=== PATIENT | female | born 1995 | race Caucasian/White ===

== ENCOUNTER 2016-07-31 00:01 | Emergency (ER) | payer MEDICAID ==
[~2016-07-31] VITALS: Ht 152.4 cm; Wt 78.2 kg
[~2016-07-31 00:01] MED LIST: NPR500T PO
[2016-07-31 00:30] VITALS: BP 116/77; PULSE 87; RESP 16; O2SAT 98
[2016-07-31 01:01] LABS: BASOPHILS % (AUTO) 0.2 % (0-3); EOSINOPHILS % (AUTO) 1.6 % (0-5); MONOCYTES % (AUTO) 11.7 % (4-12); Mean Corpuscular Hemoglobin 29.7 pg (27.0-35.0); Mean Corpuscular Volume 89.1 fL (81-100); NEUTROPHILS % (AUTO) 44.9 % (40-74); Platelet Count 256 bil/L (150-400)
[2016-07-31 01:24] LABS: Magnesium 2.1 mg/dL (1.6-2.6)
--- NOTE | 2016-07-31 01:50 | ED.REPORT ---
HPI-Abd Pain F Under 40 Date of Service Jul 31, 2016 ED Provider: Ron Oviedo DO A 21 year old female with a history of chlamydia presents to the ED complaining of abdominal pain onset 2 weeks ago. Pain waxes and wanes with episodes of intense pain. Associated symptoms include nausea, and vomiting. She denies any diarrhea or fever. She denies that she is just trying to seek drugs. 5 days ago , patient had US and CT performed by [facility] in [place]. US showed endometrial inflammation, the day before she started her period.CT showed left sided ovarian cyst. She was given Toradol by [facility], and has taken it today. She was given Dilaudid at [facility] in [place] last night where she received chest XRay. Nursing Notes Stated Complaint: ABDOMINAL PAIN Chief Complaint: Female Abdominal Pain Nursing Notes Reviewed: Yes Allergies: Coded Allergies: adhesive tape (Verified Allergy, Unknown, 08/17/15) latex (Verified Allergy, Unknown, 08/17/15) Uncoded Allergies: COBAN (Allergy, Unknown, 05/29/15) Scheduled PRN Naproxen (Naproxen) 500 Mg Tab 500 MG PO BID PRN PRN For Pain General Time Seen by MD: 01:50 Chief Complaint Abdominal pain Hx Obtained From: Patient Sudden in Onset?: No Onset Occurred: More than a week ago... (2 weeks) Symptom Duration: Since onset Progression since Onset: Waxes and wanes Severity: Current: Moderate Severity: Maximum: Moderate Recent Healthcare: Recent doctor visit Similar Sx Previous: No Past Medical History Past Medical History Notes: Elda Bowser is PCP. Past Medical History Fibromyalgia chlamydia 7 years ago. Past Surgical History None Smoking History Current Every Day Smoker Social History Lives in [place]. Alcohol Use: "Social" Drug Use: Denies drug use Other Social History: Good social support Ambulatory Status Independent Review of Systems Constitutional: Denies: Fever GI: Reports: Abdominal pain, Nausea, Vomiting, Denies: Diarrhea Complete sys rev & neg: except as marked. Physical Exam Initial Vital Signs Vital Signs (First) Date Time Temp Pulse Resp B/P Pulse Ox O2 Delivery O2 Flow Rate FiO2 07/31/16 00:30 36.4 87 16 116/77 98 Room Air Initial VS: Reviewed General/Constitutional: Awake, Alert Respiratory / Chest: Atraumatic, Breath sounds NL, Breath sounds = bilat, No respiratory distress, No rales, No rhonchi, No wheezing Cardiovascular: Heart rate NL, Regular rhythm, Heart sounds NL, No gallop, No murmurs, No rubs Abdomen: No guarding, No rebound Right-sided abdominal tenderness without rigidity. Back: Atraumatic, Full range of motion Head / Eyes: Atraumatic, Normocephalic, PERRL, EOMI Skin: Atraumatic, Color NL, Warm, Dry Neurologic: Oriented X3, Speech NL Upper Extremity / MS: No swelling, No edema Interpretation & Diagnostics Lab Results Interpretation Result Diagram: 07/31/16 0053 07/31/16 0053 Test 07/31/16 00:53 07/31/16 03:00 White Blood Count 6.4th/mm3 (3.8-10.1) Red Blood Count 4.58mil/mm3 (3.90-5.20) Hemoglobin 13.6g/dL (12.0-15.6) Hematocrit 40.8% (35.0-46.0) Mean Corpuscular Volume 89.1fL (81-100) Mean Corpuscular Hemoglobin 29.7pg (27.0-35.0) Mean Corpuscular Hemoglobin Concent 33.3% (32.0-37.0) Red Cell Distribution Width 13.8% (12.3-15.4) Platelet Count 256bil/L (150-400) Neutrophils (%) (Auto) 44.9% (40-74) Lymphocytes (%) (Auto) 41.4% (14-46) Monocytes (%) (Auto) 11.7% (4-12) Eosinophils (%) (Auto) 1.6% (0-5) Basophils (%) (Auto) 0.2% (0-3) Sodium Level 139mEq/L (134-144) Potassium Level 4.3mEq/L (3.5-5.2) Chloride Level 104mEq/L (97-108) Carbon Dioxide Level 22mmol/L (18-29) Blood Urea Nitrogen 14mg/dL (6-20) Creatinine 0.62mg/dL (0.57-1.00) Estimat Glomerular Filtration Rate 171mL/min (>59) Glucose Level 94mg/dL (60-99) Calcium Level 8.8mg/dL (8.5-10.1) Magnesium Level 2.1mg/dL (1.6-2.6) Total Bilirubin 0.2mg/dL (0.0-1.2) Aspartate Amino Transf (AST/SGOT) 15U/L (0-50) Alanine Aminotransferase (ALT/SGPT) 13U/L (0-32) Alkaline Phosphatase 65U/L (25-150) Total Protein 6.9g/dL (6.4-8.4) Albumin 3.7g/dL (3.4-5.0) Lipase 136U/L (13-60) Hold Mendes Top Tube Received (Received) Hold Urine Received (Received) Lab Results Interpretation: PROCEDURE: US ABDOMEN ULTRASOUND-LIMITED IMPRESSION: 1.Normal abdominal ultrasound. Dictated by DIEGO MONTES DE OCA M.D. Electronically signed by DIEGO MONTES DE OCA MD in [place] 07/24/16, 1005 Re-Eval/Medical Decision Source of Hx: Old records Re-Evaluation/Progress : Time of Eval: 03:06 Re-Evaluation/Progress Note: Rechecked patient who is now pain free. Explained test results, diagnosis, and plan for discharge. Patient understands and agrees with the plan. All questions addressed. Counseled Regarding: Diagnosis, Lab results, Need for follow-up, When/why to return to ED Discharge & Departure Primary Impression: Abdominal pain Abdominal location: right upper quadrant Qualified Code: R10.11 - Right upper quadrant pain Disposition: Home Patient Instructions: Acute Abdominal Pain (ED) Additional Instructions: The lab work was reassuring. The ultrasound performed at [facility] showed a normal gall bladder and pancreas. Your lipase is mildly elevated tonight. This is nonspecific however it can be related to gut or pancreatic inflammation. The cause of your pain is otherwise uncertain and needs close follow up. You may take one Percocet every 6 hours as needed for severe pain. I would like you to call your Dr first thing in the morning and tell the office that you have had 3 ER visits regarding the pain and that you need to be seen in follow up. You may need to have further evaluation and diagnostics so follow up is essential. Do not drive tonight or while taking the Percocet. Do not consume alcohol or acetaminophen while taking the Percocet. Read the aftercare instructions given. Return if any problems or any worsening symptoms. Referrals: OTHER,PHYSICIAN (PCP) [facility] Dev Ruelas MD Attestation Portions of this note were transcribed by Pankaj Aldana. I, Dr. Oviedo personally performed the history, physical exam and medical decision-making; I reviewed and confirmed the accuracy of the information in the transcribed note. Signed by: Lopez Krishnamurthy, 07/31/2016, 9411. copies to: OTHER,PHYSICIAN; [facility]; Dev Ruelas MD, Todd P DO Jul 31, 2016 01:50 Pankaj Aldana Jul 31, 2016 02:11
[2016-07-31] MEDS ORDERED: HYDROmorphone 1 mg/mL Inj IM ONE (02:40)
[2016-07-31] MEDS ORDERED: _oxyCODONE/APAP 5-325 mg Tablet PO PRN (03:00)
== END 2016-07-31 03:45 | disposition home or self-care (01) ==
LOC: SED 00:01
DX: R10.11 Right upper quadrant pain (principal); R11.2 Nausea with vomiting, unspecified; M79.7 Fibromyalgia; F17.200 Nicotine dependence, unspecified, uncomplicated; Z91.040 Latex allergy status; Z91.048 Other nonmedicinal substance allergy status
CPT/HCPCS: 80053; 81025; 83690; 83735; 85025; 96372; 99284; J1170

== ENCOUNTER 2016-08-08 03:03 | Emergency (ER) | payer MEDICAID, OTHER ==
[~2016-08-08] VITALS: Ht 152.4 cm; Wt 79.1 kg
[2016-08-08 03:11] VITALS: BP 117/77; PULSE 87; RESP 16; O2SAT 97
[2016-08-08] MEDS ORDERED: 0.9% Sodium Chloride 1,000 ML IV ONE (03:32)
[2016-08-08] MEDS ORDERED: Ondansetron 2 mg/mL 2 mL Inj IVPUSH ONE (03:35)
[2016-08-08] MEDS ORDERED: Pantoprazole 4 mg/mL 10 mL Inj IVPUSH ONE (03:35)
--- NOTE | 2016-08-08 03:42 | ED.REPORT ---
HPI-Abd Pain F Under 40 Date of Service Aug 08, 2016 ED Provider: Chino Soriano MD Patient is a 21 year old female with a history of fibromyalgia and chlamydia who presents with RLQ abdominal pain onset 2030 yesterday evening. Patient describes the pain as burning, which is different than the stabbing/throbbing abdominal pain that she experiences daily. She saw a GI specialist earlier today , with plans for a HIDA scan and colonoscopy in the near future. The patient states that her bowels have been normal, without constipation, diarrhea, or black/tarry stools. She denies dysuria or fever. Patient admits to nausea without vomiting, taking a dose of Zofran without improvement. Patient also reports taking Meclizine for dizziness and Omeprazole for possible heartburn.. She has had not had any abdominal surgeries and denies being . She reports that her last period was just before this visit and her Nexplanon was recent replaced. Previous US and CT scans taken by [facility] showed endometrial inflammation and a left sided ovarian cyst. Nursing Notes Stated Complaint: BURNING R SIDED ABDOMINAL PAIN Chief Complaint: Female Abdominal Pain Nursing Notes Reviewed: Yes Allergies: Coded Allergies: adhesive tape (Verified Allergy, Unknown, 08/08/16) latex (Verified Allergy, Unknown, 08/08/16) Uncoded Allergies: COBAN (Allergy, Unknown, 05/29/15) Scheduled PRN Dicyclomine (Bentyl) 10 Mg Capsule 10 MG PO QID PRN PRN cramps Naproxen (Naproxen) 500 Mg Tab 500 MG PO BID PRN PRN For Pain General Time Seen by MD: 03:24 Chief Complaint Abdominal pain Hx Obtained From: Patient Arrived By: Walk-in Sudden in Onset?: No Onset Occurred: 1 - 4 hours ago Symptom Duration: Since onset Location: : Abdomen lower Quality: Burning, Sharp Severity: Current: Moderate Severity: Maximum: Moderate Recent Healthcare: No recent hospitalization, Recent doctor visit Similar Sx Previous: Yes Past Medical History Past Medical History Fibromyalgia chlamydia 7 years ago. Past Surgical History None Smoking History Current Every Day Smoker (3-5 a day, quitting) Social History Alcohol Use: "Social" Drug Use: THC Other Social History: Good social support, Local resident Ambulatory Status Independent Review of Systems Constitutional: Denies: Fever GI: Reports: Abdominal pain, Nausea, Denies: Bloody/tarry stool, Constipation, Diarrhea, Vomiting Female: Denies: Dysuria Complete sys rev & neg: except as marked. Neurologic: Reports: Dizziness Physical Exam Initial Vital Signs Vital Signs (First) Date Time Temp Pulse Resp B/P Pulse Ox O2 Delivery O2 Flow Rate FiO2 08/08/16 03:11 36.8 87 16 117/77 97 Room Air Initial VS: Reviewed Extremities: Vascular intact, Neuro intact Skin: Warm (cool), Dry Neurologic: Alert, Oriented, Nonfocal Psychiatric: Mood/affect normal, Behavior normal General/Constitutional: Awake, Alert, No acute distress Distress / Hydration: Positive: Dehydration mild Appearance / Presentation: Positive: Obese (mildly) Respiratory / Chest: Breath sounds NL, Breath sounds = bilat, No respiratory distress, No rales, No rhonchi, No wheezing Cardiovascular: Heart rate NL, Regular rhythm, Heart sounds NL, No murmurs Abdomen: Soft, No guarding, No rebound Tenderness/Guarding/Rebound: Positive: Tender RLQ... (Moderate), Tender epigastric Back: Non-tender, No CVA tenderness Head / Eyes: Normocephalic, PERRL, No scleral icterus ENT: Airway patent Mouth: Positive: Mucous membranes dry Interpretation & Diagnostics Lab Results Interpretation Result Diagram: 08/08/16 0411 08/08/16 0411 Test 08/08/16 03:40 08/08/16 04:11 Urine Color Yellow (YELLOW) Urine Appearance Hazy (CLEAR,HAZY) Urine pH 7.0 (5.0-8.0) Urine Specific [place] 1.020 (1.003-1.035) Urine Protein Negativemg/dL (NEG,TRACE) Urine Glucose (UA) Negativemg/dL (NEGATIVE) Urine Ketones Negativemg/dL (NEGATIVE) Urine Occult Blood Negative (NEGATIVE) Urine Nitrite Negative (NEGATIVE) Urine Bilirubin Negative (NEGATIVE) Urine Urobilinogen 1.0mg/dL (NORMAL) Urine Leukocyte Esterase Negative (NEGATIVE) Urine RBC 0-2/hpf (0-2) Urine WBC 0-5/hpf (0-5) Urine Epithelial Cells Many/hpf (NONE-MOD) Urine Crystals None seen (NONE SEEN) Urine Bacteria Few/hpf (NONE-FEW) Urine Hyaline Casts None/lpf (NONE) Urine Granular Casts None seen (NONE SEEN) Urine Waxy Casts None seen (NONE SEEN) Urine Red Blood Cell Casts None seen (NONE SEEN) Urine White Blood Cell Casts None seen (NONE SEEN) Urine Mucus None seen (None Seen) Urine Trichomonas None seen (NONE SEEN) Urine Yeast None (NONE SEEN) Urinalysis Comment None Urine Culture Reflexed Not indicated White Blood Count 7.4th/mm3 (3.8-10.1) Red Blood Count 4.80mil/mm3 (3.90-5.20) Hemoglobin 14.3g/dL (12.0-15.6) Hematocrit 42.5% (35.0-46.0) Mean Corpuscular Volume 88.5fL (81-100) Mean Corpuscular Hemoglobin 29.8pg (27.0-35.0) Mean Corpuscular Hemoglobin Concent 33.6% (32.0-37.0) Red Cell Distribution Width 13.5% (12.3-15.4) Platelet Count 228bil/L (150-400) Neutrophils (%) (Auto) 65.1% (40-74) Lymphocytes (%) (Auto) 24.2% (14-46) Monocytes (%) (Auto) 9.8% (4-12) Eosinophils (%) (Auto) 0.7% (0-5) Basophils (%) (Auto) 0.1% (0-3) Prothrombin Time 9.8sec (8.1-12.5) Prothromb Time International Ratio 0.92ratio Sodium Level 141mEq/L (134-144) Potassium Level 4.2mEq/L (3.5-5.2) Chloride Level 103mEq/L (97-108) Carbon Dioxide Level 22mmol/L (18-29) Blood Urea Nitrogen 10mg/dL (6-20) Creatinine 0.79mg/dL (0.57-1.00) Estimat Glomerular Filtration Rate 129mL/min (>59) Glucose Level 99mg/dL (60-99) Calcium Level 8.7mg/dL (8.5-10.1) Magnesium Level 2.4mg/dL (1.6-2.6) Total Bilirubin 0.4mg/dL (0.0-1.2) Aspartate Amino Transf (AST/SGOT) 16U/L (0-50) Alanine Aminotransferase (ALT/SGPT) 12U/L (0-32) Alkaline Phosphatase 72U/L (25-150) Total Protein 7.4g/dL (6.4-8.4) Albumin 3.9g/dL (3.4-5.0) Lipase 21U/L (13-60) Hold Mendes Top Tube Received (Received) CT Abd / Pelvis Interpretation Impression: No CT findings to explain the patient's clinical symptoms. Radiologist: Guru Liao M.D. This report was transmitted to the emergency room at 08/08/16 0561 Study type: Abdominal CT IV contrast Interpretation / Wet Read by: Interpret - Radiologist Re-Eval/Medical Decision Med Decision/Clinical Course Med Decision/Clinical Course: 21-year-old with fibromyalgia and chronic abdominal pain presents with a different sort of pain vaguely in the right lower quadrant to right mid abdomen. No other associated symptoms. Mildly to moderately tender to palpation. Labs are unrevealing. CT was obtained and shows no evident abnormality. She does have a decompressed colon and some diverticulosis, remarkable given her young age. I suspect this cluster of symptoms is related to irritable bowel and relative decompression due to low fiber diet. Begun with Metamucil three capsules twice daily with fluid, increased exercise, and occasional Bentyl use for cramps. Follow up with GI as planned. Re-Evaluation/Progress : Time of Eval: 05:40 Patient Status: Condition unchanged Re-Evaluation/Progress Note: Patients condition and lab results are discussed. Patient is informed of diagnosis and plan for discharge. She understands and agrees with the plan. All questions have been answered at this time. Counseled Regarding: Diagnosis, Lab results, Need for follow-up, When/why to return to ED Discharge & Departure Primary Impression: Irritable bowel syndrome Irritable bowel syndrome type: without diarrhea Qualified Code: K58.9 - Irritable bowel syndrome without diarrhea Additional Impression: Diverticulosis Diverticulosis site: diverticulosis of large intestine Diverticulosis bleeding: diverticulosis without bleeding Qualified Code: K57.30 - Diverticulosis of large intestine without perforation or abscess without bleeding Disposition: Home Discharge Condition All VS Reviewed: Yes Condition: Improved Patient Instructions: Acute Abdominal Pain (ED), Irritable Bowel Syndrome (ED) Additional Instructions: Begin psyllium capsules, three capsules twice daily with 12 ounces of clear fluid. Increase the fiber in your diet were possible. Stay well-hydrated with plenty of clear fluids. Avoid excessive sugar consumption. Bentyl up to four times daily if needed for cramps. Use that as sparingly as possible. Continue your efforts to quit smoking. Follow-up with your doctor and with gastroenterology as planned. Return if any immediate issues, particularly blood in her stool, high fever, or other immediate issues of concern. Referrals: [facility] Scribe Attestation Portions of this note were transcribed by Don Fraser and Carmelita Du. I, Dr. Soriano personally performed the history, physical exam and medical decision -making; I reviewed and confirmed the accuracy of the information in the transcribed note. Signed by: Lopez Delarosa, 08/08/16 and 0612. copies to: [facility] Chino Soriano MD Aug 08, 2016 03:42 Don Fraser Aug 08, 2016 04:24 Carmelita Du Aug 08, 2016 06:09
[2016-08-08 03:56] LABS: APPEARANCE,URINE HAZY (CLEAR,HAZY); COLOR,URINE YELLOW (YELLOW); OCCULT BLOOD,URINE NEGATIVE (NEGATIVE)
[2016-08-08 04:18] LABS: BASOPHILS % (AUTO) 0.1 % (0-3); EOSINOPHILS % (AUTO) 0.7 % (0-5); MONOCYTES % (AUTO) 9.8 % (4-12); Mean Corpuscular Hemoglobin 29.8 pg (27.0-35.0); Mean Corpuscular Volume 88.5 fL (81-100); NEUTROPHILS % (AUTO) 65.1 % (40-74); Platelet Count 228 bil/L (150-400)
[2016-08-08 04:37] LABS: INR 0.92 ratio
[2016-08-08 04:47] LABS: Magnesium 2.4 mg/dL (1.6-2.6)
[2016-08-08] MEDS ORDERED: DICY10CA56 PO (05:48)
[2016-08-08 06:08] VITALS: BP 124/66; PULSE 78; RESP 16; O2SAT 98
--- NOTE | 2016-08-08 07:59 | DRSVH ---
PROCEDURE: CT ABDOMEN AND PELVIS WITH CONTRAST ([id number]) INDICATIONS: 21 year-old female with right lower quadrant abdominal pain. TECHNIQUE: After the administration of intravenous contrast, 5 mm thick sections acquired from the diaphragm to the symphysis. 5 mm coronal and sagittal reformats were acquired. For radiation dose reduction, the following was used: automated exposure control, adjustment of mA and/or kV according to patient [place] braun. COMPARISON: [facility], CT, CT ABD PELVIS W CON, 08/17/2015, 19:30. [facility], CT, CT ABD PELVIS W CON, 05/29/2015, 4:33. FINDINGS: Image quality: Excellent. ABDOMEN: Lung bases: Lung bases are clear. Heart size is normal. Solid organs: Liver and spleen are normal in size and enhancement. Gallbladder wall thickness is no rmal. Biliary system is non dilated. Pancreas enhances normally. No adrenal nodules. Kidneys demo nstrate normal size and enhancement, without hydronephrosis. Peritoneum and bowel: Bowel loops demonstrate normal wall thickness and caliber. The appendix appea rs normal. No free fluid or air. Nodes and vessels: No retroperitoneal or mesenteric adenopathy by size criteria. Aorta and inferior vena cava are normal in size. Miscellaneous: No ventral hernias. PELVIS: Genitourinary: Bladder wall thickness is normal. Uterus and ovaries are normal in size. Miscellaneous: No inguinal hernias or adenopathy. Bones: No suspicious bony lesions. No vertebral body compression fractures. IMPRESSION: No imaging explanation for right lower quadrant abdominal pain. No significant discrepancy with preliminary [facility] report. Dictated by: Antonino Pichardo M.D. on 08/08/2016 at 7:50 Approved by: Antonino Pichardo M.D. on 08/08/2016 at 7:57
== END 2016-08-08 05:48 | disposition home or self-care (01) ==
LOC: SED 03:03
DX: K58.9 Irritable bowel syndrome, unspecified (principal); K57.30 Diverticulosis of large intestine without perforation or abscess without bleeding; F17.200 Nicotine dependence, unspecified, uncomplicated; Z91.040 Latex allergy status
CPT/HCPCS: 36415; 74177; 80053; 81000; 81025; 83690; 83735; 85025; 85610; 96361; 96374; 96375; 99285; J1885; J2405; J7030; Q9967

== ENCOUNTER 2016-09-23 00:05 | Emergency (ER) | payer OTHER ==
[~2016-09-23] VITALS: Ht 152.4 cm; Wt 80.9 kg
[~2016-09-23 00:05] MED LIST changes: +DICY10CA56 PO
[2016-09-23 00:09] VITALS: BP 129/72; PULSE 85; RESP 16; O2SAT 100
[2016-09-23 01:19] LABS: BASOPHILS % (AUTO) 0.2 % (0-3); EOSINOPHILS % (AUTO) 1.1 % (0-5); MONOCYTES % (AUTO) 10.3 % (4-12); Mean Corpuscular Hemoglobin 29.9 pg (27.0-35.0); Mean Corpuscular Volume 89.6 fL (81-100); NEUTROPHILS % (AUTO) 49.3 % (40-74); Platelet Count 243 bil/L (150-400)
--- NOTE | 2016-09-23 01:26 | ED.REPORT ---
HPI-General Illness Date of Service Sep 23, 2016 ED Provider: Bo Landin MD A 21 year old female with a history of THC use, fibromyalgia and anxiety presents to the ED complaining of LUQ abdominal pain. The pt has been experiencing aching, nonradiating LUQ abdominal pain with intermittent dark stools for two weeks. The pain was especially severe today and accompanied by nausea and vomiting, though the pt denies fever or chills. The pt is scheduled to see cardiology to be approved for a colonoscopy in 10/2016 and has been previously prescribed 40 mg omeprazole by gastroenterology. The pain today is similar to previous pain. Nursing Notes Stated Complaint: LUQ PAIN,BLK STOOLS,NAUSEA Chief Complaint: Female Abdominal Pain Nursing Notes Reviewed: Yes Allergies: Coded Allergies: adhesive tape (Verified Allergy, Unknown, 09/23/16) latex (Verified Allergy, Unknown, 08/08/16) Uncoded Allergies: COBAN (Allergy, Unknown, 05/29/15) Scheduled PRN Dicyclomine (Bentyl) 10 Mg Capsule 10 MG PO QID PRN PRN cramps Naproxen (Naproxen) 500 Mg Tab 500 MG PO BID PRN PRN For Pain General Time Seen by MD: 01:25 Chief Complaint Abdominal pain Hx Obtained From: Patient Arrived By: Walk-in Sudden in Onset?: No Onset Occurred: More than a week ago... Recent Healthcare: Recent doctor visit Similar Sx Previous: Yes Past Medical History Past Medical History Fibromyalgia chlamydia 7 years ago. anxiety Past Surgical History None Smoking History Current Every Day Smoker Social History Alcohol Use: "Social" Drug Use: THC Other Social History: Good social support, Local resident Ambulatory Status Independent Review of Systems Full Review of Systems Constitutional: Denies: Chills, Fever Respiratory: Denies: Non-productive cough, Shortness of breath GI: Reports: Abdominal pain, Bloody/tarry stool, Nausea, Vomiting Musculoskeletal: Denies: Back pain, Neck pain Skin: Denies Rash Complete sys rev & neg: except as marked. Physical Exam Constitutional: Well-developed, well-nourished. Not diaphoretic. Head: Normocephalic and atraumatic. Mouth/Throat: Oropharynx is clear and moist. No oropharyngeal exudate. Eyes: EOM are normal. Pupils are equal, round, and reactive to light. Neck: Supple, no tracheal deviation. Cardiovascular: Normal rate, regular rhythm. Equal and intact distal pulses throughout. Pulmonary/Chest: Effort normal and breath sounds normal. No respiratory distress. Abdominal: Soft. No distension. Diffuse LUQ tenderness with no rebound, or guarding. No other abdominal tenderness. Bowel sounds present. Back: No left-sided CVAT. Rectum: Atraumatic. Heme occult negative. No gross blood, no mass, no hemorrhoids. Musculoskeletal: Range of motion grossly intact, moving all extremities. No edema or tenderness appreciated. Neurological: AOx3. Grossly nonfocal exam. Strength and sensation intact and equal to bilateral upper and lower extremities. Skin: Warm and dry, no rashes or pallor appreciated. Psychiatric: Appropriate mood and affect. Behavior appears normal. Vital Signs Vital Signs Date Time Temp Pulse Resp B/P Pulse Ox O2 Delivery O2 Flow Rate FiO2 09/23/16 00:09 36.9 85 16 129/72 100 Room Air Initial VS: Reviewed Interpretation & Diagnostics Lab Results Interpretation Result Diagram: 09/23/16 0110 09/23/16 0110 Test 09/23/16 01:10 White Blood Count 5.7th/mm3 (3.8-10.1) Red Blood Count 4.32mil/mm3 (3.90-5.20) Hemoglobin 12.9g/dL (12.0-15.6) Hematocrit 38.7% (35.0-46.0) Mean Corpuscular Volume 89.6fL (81-100) Mean Corpuscular Hemoglobin 29.9pg (27.0-35.0) Mean Corpuscular Hemoglobin Concent 33.3% (32.0-37.0) Red Cell Distribution Width 13.4% (12.3-15.4) Platelet Count 243bil/L (150-400) Neutrophils (%) (Auto) 49.3% (40-74) Lymphocytes (%) (Auto) 38.9% (14-46) Monocytes (%) (Auto) 10.3% (4-12) Eosinophils (%) (Auto) 1.1% (0-5) Basophils (%) (Auto) 0.2% (0-3) Hold Urine Received (Received) Sodium Level 138mEq/L (134-144) Potassium Level 4.0mEq/L (3.5-5.2) Chloride Level 104mEq/L (97-108) Carbon Dioxide Level 21mmol/L (18-29) Blood Urea Nitrogen 11mg/dL (6-20) Creatinine 0.74mg/dL (0.57-1.00) Estimat Glomerular Filtration Rate 139mL/min (>59) Glucose Level 98mg/dL (60-99) Calcium Level 8.6mg/dL (8.5-10.1) Magnesium Level 2.0mg/dL (1.6-2.6) Total Bilirubin 0.2mg/dL (0.0-1.2) Aspartate Amino Transf (AST/SGOT) 16U/L (0-50) Alanine Aminotransferase (ALT/SGPT) 13U/L (0-32) Alkaline Phosphatase 47U/L (25-150) Total Protein 6.9g/dL (6.4-8.4) Albumin 3.7g/dL (3.4-5.0) Lipase 20U/L (13-60) Hold Mendes Top Tube Received (Received) Re-Eval/Medical Decision Med Decision/Clinical Course 21F w/ chronic abd pain p/w LUQ pain and dark stools. HDS here in the ED. Labs and exam reassuring; mild LUQ TTP w/o rebound or guarding. Hemoccult negative. Tolerating po. Discussed performing CT w/ patient but both agreed to hold off for now given her repeated CTs, chronicity and character of her pain, the lab and exam findings, and the availability of outpt f/u. Improved on reassessment. Plan d/c w/ careful return precautions, repeat exam w/ PCP. Pt agreeable to plan, no further questions. Source of Hx: Old records Counseled Regarding: Diagnosis, Lab results, Need for follow-up, When/why to return to ED Discharge & Departure Primary Impression: Abdominal pain Abdominal location: left upper quadrant Qualified Code: R10.12 - Left upper quadrant pain Disposition: Home Discharge Condition All VS Reviewed: Yes Condition: Stable Patient Instructions: Acute Abdominal Pain (ED) Additional Instructions: No acute cause of your abdominal pain was identified. Call your primary care physician in the morning to arrange a follow up appointment this week. As discussed, keep your follow up appointments with cardiology and gastroenterology. Return to the emergency department if you develop any new or worsening symptoms. Thank you for allowing us to be a part of your care tonight. Referrals: OTHER,PHYSICIAN (PCP) (Family) Scribe Attestation Portions of this note were transcribed by Renan Corado. I, Dr. Landin personally performed the history, physical exam and medical decision-making; I reviewed and confirmed the accuracy of the information in the transcribed note. Signed by: Lopez Huerta, 09/23/16 and 0232. Bo Landin MD Sep 23, 2016 01:26 RENAN CORADO Sep 23, 2016 01:50
[2016-09-23] MEDS ORDERED: 0.9% Sodium Chloride 1,000 ML IV ONE (01:58)
[2016-09-23] MEDS ORDERED: Ondansetron 2 mg/mL 2 mL Inj IVPUSH ONE (02:00)
[2016-09-23 02:56] VITALS: PULSE 76; RESP 16
== END 2016-09-23 02:56 | disposition home or self-care (01) ==
LOC: SED 00:05
DX: R10.12 Left upper quadrant pain (principal); R11.2 Nausea with vomiting, unspecified; F12.10 Cannabis abuse, uncomplicated; M79.7 Fibromyalgia; F41.9 Anxiety disorder, unspecified; F17.200 Nicotine dependence, unspecified, uncomplicated; Z91.040 Latex allergy status
CPT/HCPCS: 36415; 80053; 81025; 82272; 83690; 83735; 85025; 96374; 99284; J2405; J7030

== ENCOUNTER 2016-10-23 03:30 | Emergency (ER) | payer OTHER ==
[~2016-10-23] VITALS: Ht 152.4 cm; Wt 79.5 kg
[2016-10-23 03:35] VITALS: BP 119/68; PULSE 77; RESP 16; O2SAT 99
--- NOTE | 2016-10-23 03:35 | ED.REPORT ---
HPI-Abd Pain F Under 40 Date of Service Oct 23, 2016 ED Provider: Dr. Noonan Pt is a 21 y/o female w/ a hx of ruptured ovarian cysts presenting to the ED c/ o RLQ abdominal pain onset today. She c/o associated subjective fever, nausea, vomiting, diarrhea. The patient believes her pain is caused by a ruptured ovarian cyst. Pt denies hematemesis, bloody stools. Nursing Notes Stated Complaint: RLQ ABDOMINAL PAIN,VOMITING Chief Complaint: Female Abdominal Pain Nursing Notes Reviewed: Yes Allergies: Coded Allergies: adhesive tape (Verified Allergy, Unknown, 09/23/16) latex (Verified Allergy, Unknown, 08/08/16) Uncoded Allergies: COBAN (Allergy, Unknown, 05/29/15) Scheduled PRN Dicyclomine (Bentyl) 10 Mg Capsule 10 MG PO QID PRN PRN cramps Naproxen (Naproxen) 500 Mg Tab 500 MG PO BID PRN PRN For Pain General Time Seen by MD: 03:35 Chief Complaint Abdominal pain Hx Obtained From: Patient Arrived By: Walk-in Sudden in Onset?: No Onset Occurred: 9 - 12 hours ago Symptom Duration: Since onset Progression since Onset: Constant Location: : RLQ Quality: Painful Severity: Current: Mild Severity: Maximum: Moderate Recent Healthcare: Previous diagnosis Similar Sx Previous: Yes Past Medical History Past Medical History Notes: SEE JACQUI REPORT: Prescribed: Oxycodone 5 mg Hydromorphone 4 mg Lyrica 225 mg Past Medical History Fibromyalgia Ovarian cysts chlamydia 7 years ago. anxiety Past Surgical History None - upcoming colonoscopy as of 10/23/16 Smoking History Current Every Day Smoker Social History Alcohol Use: "Social" Drug Use: THC Other Social History: Good social support, Local resident Ambulatory Status Independent Review of Systems Constitutional: Reports: Fever, Denies: Chills Respiratory: Denies: Non-productive cough, Shortness of breath Cardiovascular: Denies: Chest pain, Dyspnea on exertion GI: Reports: Abdominal pain, Diarrhea, Nausea, Vomiting, Denies: Bloody/tarry stool, Hematemesis Complete sys rev & neg: except as marked. Physical Exam Initial Vital Signs Vital Signs (First) Date Time Temp Pulse Resp B/P Pulse Ox O2 Delivery O2 Flow Rate FiO2 10/23/16 03:35 36.8 77 16 119/68 99 Initial VS: Reviewed, Vital signs normal Head / Eyes: Atraumatic, Normocephalic, PERRL ENT: Mucous membranes moist, Conjunctiva normal, No scleral icterus Neck: Supple, Full range of motion Extremities: Vascular intact, Neuro intact, No swelling Skin: Warm, Dry, No cyanosis Neurologic: Alert, Oriented, Nonfocal Psychiatric: Mood/affect normal, Behavior normal, Normal thought content General/Constitutional: Awake, Alert, No acute distress, Well appearing, Cooperative, Not toxic appearing Appearance / Presentation: Positive: Hygiene poor, Obese Respiratory / Chest: Breath sounds NL, Breath sounds = bilat, No respiratory distress, No rales, No rhonchi, No wheezing, No retractions, No stridor Cardiovascular: Heart rate NL, Regular rhythm, Heart sounds NL, No gallop, No murmurs, No rubs Abdomen: Atraumatic, Soft, No guarding, No rebound, No distention, No palpable mass Tender mildly diffusely with slight increase about the RLQ Back: Full range of motion, Painless range of motion, No CVA tenderness Interpretation & Diagnostics Lab Results Interpretation Result Diagram: 10/23/16 0348 10/23/16 0348 Test 10/23/16 03:48 10/23/16 04:00 White Blood Count 6.4th/mm3 (3.8-10.1) Red Blood Count 4.80mil/mm3 (3.90-5.20) Hemoglobin 14.2g/dL (12.0-15.6) Hematocrit 42.0% (35.0-46.0) Mean Corpuscular Volume 87.5fL (81-100) Mean Corpuscular Hemoglobin 29.6pg (27.0-35.0) Mean Corpuscular Hemoglobin Concent 33.8% (32.0-37.0) Red Cell Distribution Width 13.2% (12.3-15.4) Platelet Count 287bil/L (150-400) Neutrophils (%) (Auto) 43.9% (40-74) Lymphocytes (%) (Auto) 42.1% (14-46) Monocytes (%) (Auto) 12.9% (4-12) Eosinophils (%) (Auto) 0.9% (0-5) Basophils (%) (Auto) 0.2% (0-3) Hold Purple Top Tube Received (Received) Sodium Level 137mEq/L (134-144) Potassium Level 4.7mEq/L (3.5-5.2) Chloride Level 101mEq/L (97-108) Carbon Dioxide Level 18mmol/L (18-29) Blood Urea Nitrogen 8mg/dL (6-20) Creatinine 0.80mg/dL (0.57-1.00) Estimat Glomerular Filtration Rate 127mL/min (>59) Glucose Level 92mg/dL (60-99) Calcium Level 8.9mg/dL (8.5-10.1) Magnesium Level 2.1mg/dL (1.6-2.6) Total Bilirubin 0.3mg/dL (0.0-1.2) Aspartate Amino Transf (AST/SGOT) 22U/L (0-50) Alanine Aminotransferase (ALT/SGPT) 13U/L (0-32) Alkaline Phosphatase 68U/L (25-150) Total Protein 7.7g/dL (6.4-8.4) Albumin 3.8g/dL (3.4-5.0) Lipase 18U/L (13-60) Hold [place] Top Tube Received (Received) Hold Urine Received (Received) Lab values outside NL range: no clinical significance. Re-Eval/Medical Decision Med Decision/Clinical Course 21-year-old female who has had many evaluations for abdominal pain. She has had negative CT scan on at least 4 occasions. She has had multiple labs and other imaging done. She apparently has had ovarian cysts in the past. Blood and urine labs reveal no evidence of an infection. Her abdomen is fairly benign , and I do not feel that we should reimage her at this time. She will follow up with her primary doctor and specialist referrals for further evaluation and treatment. Re-Evaluation/Progress : Time of Eval: 04:52 Re-Evaluation/Progress Note: Pt rechecked. Discussed normal labs and unlikely chance of acute abdominal injury. Informed pt of plan for treatment. Pt understands and agrees with plan for treatment. F/U instructions and RTER warnings given. All questions addressed. Counseled Regarding: Diagnosis, Lab results, Need for follow-up, When/why to return to ED Discharge & Departure Primary Impression: RLQ abdominal pain Disposition: Home Discharge Condition All VS Reviewed: Yes Condition: Stable Patient Instructions: Acute Abdominal Pain (ED) Additional Instructions: Your labs are all normal. No indication at this time for repeat imaging. You were given Toradol 15 mg and Dilaudid 1 mg in the emergency room. Follow-up with your regular doctor later today as needed for persistent symptoms and for further pain management. Referrals: OTHER,PHYSICIAN (PCP) (Family) Scribe Attestation Portions of this note were transcribed by Pablo Ramirez. I, Dr. Noonan personally performed the history, physical exam and medical decision-making; I reviewed and confirmed the accuracy of the information in the transcribed note. Signed by Lopez Mccoy, 10/23/16 - 0345 Tae Noonan MD Oct 23, 2016 03:35 PABLO RAMIREZ Oct 23, 2016 03:42
[2016-10-23] MEDS ORDERED: 0.9% Sodium Chloride 1,000 ML IV ONE (03:50)
[2016-10-23] MEDS ORDERED: Ondansetron 2 mg/mL 2 mL Inj IVPUSH PRN (03:50)
[2016-10-23] MEDS ORDERED: Ketorolac 15 mg/mL Inj IVPUSH ONE (03:50)
[2016-10-23 04:04] LABS: BASOPHILS % (AUTO) 0.2 % (0-3); EOSINOPHILS % (AUTO) 0.9 % (0-5); MONOCYTES % (AUTO) 12.9 % (4-12); Mean Corpuscular Hemoglobin 29.6 pg (27.0-35.0); Mean Corpuscular Volume 87.5 fL (81-100); NEUTROPHILS % (AUTO) 43.9 % (40-74); Platelet Count 287 bil/L (150-400)
[2016-10-23 04:35] LABS: Magnesium 2.1 mg/dL (1.6-2.6)
[2016-10-23] MEDS ORDERED: HYDROmorphone 1 mg/mL Inj IM ONE (04:55)
[2016-10-23 05:14] VITALS: PULSE 74; RESP 16
== END 2016-10-23 05:15 | disposition home or self-care (01) ==
LOC: SED 03:30
DX: R10.31 Right lower quadrant pain (principal); R50.9 Fever, unspecified; R11.2 Nausea with vomiting, unspecified; R19.7 Diarrhea, unspecified; F41.9 Anxiety disorder, unspecified; M79.7 Fibromyalgia; F17.200 Nicotine dependence, unspecified, uncomplicated; Z91.040 Latex allergy status; Z91.048 Other nonmedicinal substance allergy status
CPT/HCPCS: 80053; 83690; 83735; 85025; 96361; 96372; 96374; 96375; 99285; J1170; J1885; J2405; J7030

== ENCOUNTER 2016-11-27 14:45 | Day surgery (SDC) | payer OTHER ==
[~2016-11-27] VITALS: Ht 152.4 cm; Wt 82.0 kg
--- NOTE | 2016-11-27 07:47 | PCM.HPANE ---
Patient Data Surgeon Admitting Provider: Attending Provider:Jose Geiger MD Primary Care Physician:David Other Provider:Yan Castellanos Anesthesia Reason for Visit Abdominal Pain Of Unknown Cause Ht/WT & BMI Body Mass Index Allergies Coded Allergies: adhesive tape (Verified Allergy, Unknown, 09/23/16) latex (Verified Allergy, Unknown, 08/08/16) Uncoded Allergies: COBAN (Allergy, Unknown, 05/29/15) Past Anesthesia History Anesthesia History: Denies:: Abnormal Airway, Anesthesia Reactions, Difficult Intubation, Fam Anesthesia Reaction, Fam Malignant Hypertherm, Malignant Hyperthermia Diabetes History Hx Diabetes?: No Medications Reported Medications Oxcarbazepine 150 Mg [id number] Mg PO BID 30 Days 11/27/16 Dicyclomine 10 Mg Frupovj53 Mg PO QID PRN For GI Cramps Ref 0 11/27/16 Pregabalin (Lyrica)225 Mg Wrgprxs445 Mg PO BID 30 Days Ref 0 11/25/16 Prazosin 1 Mg Capsule1 Mg PO HS 11/25/16 Prazosin 5 Mg Capsule5 Mg PO HS 11/25/16 Omeprazole 40 Mg Capsule.dr40 Mg PO DAILY Ref 0 11/25/16 diphenhydrAMINE HCl (Benadryl)25 Mg Suliqlv87 Mg PO Q4 PRN For Itching Ref 0 11/25/16 Discontinued Reported Medications Pregabalin (Lyrica)200 Mg Sthvpxc067 Mg PO BID 430 Days Ref 0 11/25/16 Venlafaxine ER (Effexor XR)37.5 Mg Hkvsesh00.5 Mg PO DAILY Ref 0 11/25/16 Discontinued Scripts Dicyclomine (Bentyl)10 Mg Awxtgfa86 Mg PO QID PRN cramps #30 CAPSULE Prov:Chino Soriano MD 08/08/16 Naproxen 500 Mg Ruw891 Mg PO BID PRN For Pain #20 TABLET Ref 0 Prov:Ebenezer Kwon 08/17/15 History History of ENT Problems?: No HEENT History: Denies:: Abnormal Airway Cataracts Difficult Intubation Dysphagia Glaucoma Hearing Problem Sinus Problem TMJ Denture Type: None Teeth Condition: Within Normal Limits Hx of Heart Problems?: No Cardiovascular History: Denies:: AICD Abdominal Aortic Aneurism Atrial Fibrillation Cardiac Surgery Chest Pain Congestive Heart Failure Coronary Artery Disease Edema Heart Murmur Hypertension Irregular Heartbeat Pacemaker Peripheral Vascular Rheumatic Fever Thrombophlebitis Valvular Heart Disease Hx of Respiratory Problem?: No Respiratory History: Denies:: Asthma COPD Chest Surgery Cough Dyspnea Emphysema Hemoptysis Oxygen Administration Pneumonia Pulmonary Embolism Tuberculosis Use of C-PAP Machine Use of Inhalers / NEBS Hx Neurologic Problems?: No Neurological History: Denies:: Alzheimer's Disease CVA Dementia Dizziness Headaches Multiple Sclerosis Parkinson's Disease Peripheral Neuropathy Seizures TIA Hx of GI Problems?: No Gastrointestinal History: Denies:: Cirrhosis Diverticulitis Gall Bladder Disease Gastroesphageal Reflux Gastrointestinal Bleeding Heartburn Hepatitis Hiatal Hernia Liver Disease Rectal Bleeding Hx of Problems?: No Genitourinary History: Denies:: HX of Hemodialysis Kidney Stones Urinary Tract Infection HX of Peritoneal Dialysis: No Female Hx: Denies:: Currently Endometriosis Pelvic Inflammatory Problems with Breasts? Hx Musculoskeletal Problems?: No Musculoskeletal History: Denies:: Back Injury Degenerative Joint Fibromyalgia Joint Replacement Musculoskeletal Trauma Myasthenia Gravis Osteoarthritis Rheumatoid Arthritis Systemic Lupus Hx of Psycho/Social Problems?: No Psycho Social History: Denies:: Anxiety Bipolar Disorder Hx Depression Suicide Attempt Hx Surgeries?: No Hx Any Other Health Problems?: No Other History: Denies:: Cancer Endocrine Disease Hospitalization Thyroid Disease Hx Diabetes: No Hx Alcohol Use: NoHx Substance Use: No Smoking Status: Current Every Day Smoker Have You Smoked inLast 12 mo: Yes Stop/Bang Risk Assessment Category Category 1A: Patient has history of documented sleep apnea, and HAS NOT received any narcotic, sedative or anesthesia administration during this stay. Category 1B: Patient has history of documented sleep apnea, and HAS received any narcotic , sedative or anesthesia administration during this stay Category 2: Patient has SUSPECTED Obstructive Sleep Apnea, and HAS received any narcotic , sedative or anesthesia administration during this stay. Category 3: Patient has SUSPECTED Obstructive Sleep Apnea and HAS NOT received narcotic, sedative or anesthesia administration during this stay. Category 4: Outpatient in Procedural Areas with known sleep apnea or who screen positive for High Risk via the STOP/BANG questionnaire. Exam Exam General Appearance: Alert, Oriented X3, Cooperative, Mild Distress HEENT/AIRWAY: MP 2, Neck Movement (from), Mouth Opening (wnl) Lungs: Clear to Auscultation Heart: Exam Unremarkable Plan Impression Patient chart reviewed, patient interviewed and anesthestic plan with risks, benefits, and alternatives discussed, and informed consent obtained. ASA Physical Status: ASA2 Mod Systemic Disease Anesthetic Plan: MAC Bene/Risks/Altern/Consents: Yes HP Complete Prior to Induction: Yes Phi Lucio MD Nov 27, 2016 07:47
[~2016-11-27 14:45] MED LIST changes: -DICY10CA56 PO; +DIPH25CA6 PO; +Lactated Ringer's 1,000 ML IV ONE; -NPR500T PO; +OMEP40CA36 PO; +PRAZ1CAP2 PO; +PRAZ5CAP3 PO; +PREG200C PO; +PREG225C PO; +VENL37.53 PO
[2016-11-27] MEDS ORDERED: Propofol 10,000 mCg/mL 20 mL Inj ONE (14:46)
[2016-11-27] MEDS ORDERED: DICY10CA13 PO (15:42)
[2016-11-27] MEDS ORDERED: OXCA150T PO (15:42)
[2016-11-27 15:51] VITALS: BP 109/60; PULSE 80; RESP 16; O2SAT 98
[2016-11-27] MEDS ORDERED: MetoCLOpramide 5 mg/mL 2 mL Inj IVPUSH PRN (16:10)
[2016-11-27] MEDS ORDERED: Ondansetron 2 mg/mL 2 mL Inj IVPUSH PRN (16:10)
[2016-11-27] MEDS: Lactated Ringer's 1,000 ML IV SCH ×2 (16:19→16:28)
[2016-11-27 16:38] VITALS: PULSE 72; RESP 16; O2SAT 98
--- NOTE | 2016-11-27 16:41 | PCM.ANEP1 ---
Post Anesthesia PACU Phase 1 Assessment Vital Signs Vital Signs Date Time Temp Pulse Resp B/P Pulse Ox O2 Delivery O2 Flow Rate FiO2 11/27/16 15:51 36.0 80 16 109/60 98 Room Air Anesthetic Administered: MAC Level of Alertness: Awake, talking JACQUES's with Equal Strength: Yes Pain: No Nausea or Vomiting: No CV Function & Hydration Stable: Yes Airway Device: Oxygen Delivery: Room Air Lungs: Normal Air Movement PACU Phase 2 Assessment Complications: No Follow up Care: No Patient Instructions Provided: N/A Phi Lucio MD Nov 27, 2016 16:41
--- NOTE | 2016-11-27 16:46 | PCM.ENDCOL ---
Colonoscopy Date of Service: Nov 27, 2016 Physician Jose Geiger MD Pre Procedure Diagnosis: Abdominal pain Post Procedure Dx & Findings: Normal colonoscopy Procedure Colonoscopy PROCEDURE IN DETAIL: Anesthesiologist sedation Prep adequate Withdrawal time 10 minutes After unremarkable rectal examination the Olympus video colonoscope was inserted patient's anal canal and was advanced to cecum. Landmarks were identified including the ileocecal valve and appendiceal orifice. Scope further events the terminal ileum. Advanced 10 cm. Visualized terminal ileum showed normal villous structure without ulcer mass or erosion. Scope was withdrawn systematically. Visualized colonic mucosa showed healthy shiny mucosa with normal healthy-appearing vasculature. In the rectum retroflexion was done which showed hemorrhoids. Anal canal was inspected carefully on the way out and hemorrhoids noted. Impression Hemorrhoids Source of abdominal pain Presedation Assessment Risks and Benefits Informed consent was obtained from the patient after all risks and benefits including but not limited to drug reaction, infection, pain, bleeding, perforation, as well as alternatives were discussed. Patient monitoring Continuous pulse oximetry, cardiac monitoring, blood pressure monitoring, IV access, and oxygen at 2L per nasal cannula. Complications There were no periprocedural complications identified. Post Procedure Plan Post Procedure Recommendations 1. Restrict activities today. 2. Resume normal activities in the morning. 3. Resume medications. 4. Patient informed of normal post procedure side effects as bloating, drowsiness, blood streaking in the stool. 5. average risk CRCS. If colon polyps come back as: -Hyperplastic- can repeat colonoscopy in 10 years -Tubular adenoma- repeat colonoscopy in 5 years -Tubulovillous/villous adenoma- repeat colonoscopy in 3 years -If any dysplasia- return to clinic as soon as possible 6. Please don't hesitate to call me with any questions. Jose Geiger MD Nov 27, 2016 16:46
[2016-11-27 16:48] VITALS: PULSE 72; RESP 16; O2SAT 95
[2016-11-27 16:58] VITALS: PULSE 71; RESP 16; O2SAT 96
== END 2016-11-27 23:59 | disposition home or self-care (01) ==
LOC: END 14:45
PROVIDERS: ATTEND Internal Medicine
DX: R10.9 Unspecified abdominal pain (principal); K64.8 Other hemorrhoids; F17.210 Nicotine dependence, cigarettes, uncomplicated; Z79.899 Other long term (current) drug therapy
CPT/HCPCS: 45378; J2250; J2704; J7120